=== PATIENT | male | born 1970 | race American Indian/Alaskan Native ===

== ENCOUNTER 2017-01-20 09:32 | Emergency (ER) | payer SELFPAY ==
[2017-01-20 12:07] LABS: Basophils % (Auto) 0.4 % (0.0-1.8); Hematocrit 45.4 % (35.5-45.6); Hemoglobin 14.7 gm/dl (11.8-15.2); Mean Corpuscular HGB Conc 32 % (32-34); Mean Corpuscular Hemoglobin 32 pg (28-32); Mean Corpuscular Volume 100 fl (84-94); Platelet Count 156 K/mm3 (140-440); Red Blood Count 4.54 M/mm3 (3.65-5.03); Red Cell Distribution Width 13.7 % (13.2-15.2); White Blood Count 18.3 K/mm3 (4.5-11.0)
[2017-01-20 12:18] LABS: Anion Gap 18 mmol/L; BUN/Creatinine Ratio 10.76; Blood Urea Nitrogen 14 mg/dL (9-20); Calcium 8.9 mg/dL (8.4-10.2); Carbon Dioxide 25 mmol/L (22-30); Glucose 109 mg/dL (75-100); Potassium 4.5 mmol/L (3.6-5.0); Sodium 135 mmol/L (137-145)
--- NOTE | 2017-01-20 14:15 | Emergency Department Report ---
HPI - General Chief Complaint: Upper Respiratory Infection Time Seen by Provider: 01/20/17 13:26 - HPI HPI: Patient here reported that it started yesterday evening when he developed a tight feeling and has been urinating a lot. He said he is having some burning after urination. Denies any increased thirst. He stated that he's been taking amoxicillin that was prescribed from his brother last year for toothache and it hasn't been working. He is having a slight headache and some chills. He said his headache is paraspinous it doesn't feel like pain he just feels like pressure to his forehead. Pain is 2 out of 10. No [id number] pain medication taken. Denies any chest pain or shortness of breath. He said he coughs occasionally. ED Past Medical Hx - Past Medical History Previous Medical History?: Yes Hx Psychiatric Treatment: Yes (ANXIETY) - Surgical History Past Surgical History?: No - Family History Family history: hypertension - Social History Smoking Status: Never Smoker Substance Use Type: None - Medications Home Medications: Home Medications Medication Instructions Recorded Confirmed Last Taken Type Escitalopram [Lexapro] 10 mg PO DAILY #14 tablet 09/02/15 Unknown Rx Cetirizine HCl [ZyrTEC] 10 mg PO QDAY #14 capsule 01/20/17 Unknown Rx Fluticasone [Flonase] 1 spray NS QDAY #1 bottle 01/20/17 Unknown Rx Levofloxacin [Levaquin] 750 mg PO QDAY #10 tablet 01/20/17 Unknown Rx ED Review of Systems ROS: Stated complaint: FATIGUE Other details as noted in HPI Comment: All other systems reviewed and negative Constitutional: chills. denies: fever Eyes: denies: eye discharge ENT: congestion. denies: throat pain Respiratory: cough. denies: shortness of breath, SOB with exertion, SOB at rest , stridor, wheezing Cardiovascular: denies: chest pain, palpitations, edema, syncope Gastrointestinal: denies: abdominal pain, nausea, vomiting, diarrhea Genitourinary: dysuria, frequency. denies: hematuria, discharge, testicular pain, testicular mass Musculoskeletal: denies: back pain Skin: denies: rash Neurological: headache. denies: numbness, paresthesias, confusion, abnormal gait, vertigo Physical Exam - Physical Exam Vital Signs: Vital Signs 01/20/17 10:44 Temperature 98.2 F Pulse Rate 67 Respiratory 18 Rate Blood Pressure 122/88 O2 Sat by Pulse 99 Oximetry General: This is a 46-year-old male well-nourished well-developed in no acute distress. Physical Exam: Head: Normocephalic atraumatic Mouth: Moist, no pharyngeal exudate or erythema. Uvula is midline and oral airway is patent. No facial swelling. No peritonsillar abscesses. Nose: Congested without erythema to mucosa. Clear Drainage. Maxillary and frontal sinuses nontender to palpate Neck: Supple, no C-spine tenderness, no tracheal deviation. Nontender to palpate. no adenopathy Ears: Bilateral TMs congested without erythema. Bilateral EAC without any redness swelling or drainage. Abdomen: Soft, nontender to palpate in all quadrants, normal bowel sounds in all quadrant and negative CVA tenderness bilaterally. Back: No vertebral or paraspinal tenderness. No saddle anesthesia. Patient able to ambulate without any difficulties. Negative SLR bilaterally. Neurological: GCS of 15, alert and oriented 3. Speech is clear and fluid. Normal gait. No motor or sensory deficit. Normal reflexes. No facial drooping. No pronator drift and negative Romberg. Eyes: Bilateral pupils equal and reactive to light, bilateral EOM intact. Bilateral sclera and conjunctiva without injection. Normal accommodation. No nystagmus Lungs: Clear to auscultate bilaterally no rhonchi wheezes or rales. Normal work of breathing extremity; No CCE. +2 pulses. No neurovascular compromise Cardiovascular: S1-S2, regular rate rhythm. No murmurs. Skin: clean Dry and intact no rash no lesions Psych: Normal mood and behavior ED Course Vital Signs 01/20/17 10:44 Temperature 98.2 F Pulse Rate 67 Respiratory 18 Rate Blood Pressure 122/88 O2 Sat by Pulse 99 Oximetry Vital Signs 01/20/17 01/20/17 10:44 16:45 Temperature 98.2 F Pulse Rate 67 70 Respiratory 18 18 Rate Blood Pressure 122/88 Blood Pressure 122/84 [Left] O2 Sat by Pulse 99 99 Oximetry - Reevaluation(s) Reevaluation #1: 01/20/17 16:42 Patient receives IV fluid in emergency room and given ceftriaxone 1 g IV for UTI. Vital signs remained stable. Blood glucose 122 after he ate. 04/12/17 16:43 Chest x-ray normal. ED Medical Decision Making - Lab Data Result diagrams: 01/20/17 11:49 01/20/17 11:49 Lab Results 01/20/17 01/20/17 01/20/17 Range/Units 10:48 11:49 11:49 WBC 18.3 H (4.5-11.0) K/mm3 RBC 4.54 (3.65-5.03) M/mm3 Hgb 14.7 (11.8-15.2) gm/dl Hct 45.4 (35.5-45.6) % MCV 100 H (84-94) fl MCH 32 (28-32) pg MCHC 32 (32-34) % RDW 13.7 (13.2-15.2) % Plt Count 156 (140-440) K/mm3 Lymph % (Auto) 9.3 L (13.4-35.0) % [place] % (Auto) 8.3 H (0.0-7.3) % Eos % (Auto) 0.0 (0.0-4.3) % Baso % (Auto) 0.4 (0.0-1.8) % Lymph # 1.7 (1.2-5.4) K/mm3 [place] # 1.5 H (0.0-0.8) K/mm3 Eos # 0.0 (0.0-0.4) K/mm3 Baso # 0.1 (0.0-0.1) K/mm3 Seg Neutrophils % 82.0 H (40.0-70.0) % Seg Neutrophils # 15.0 H (1.8-7.7) K/mm3 PT (12.2-14.9) Sec. INR (0.87-1.13) APTT (24.2-36.6) Sec. Sodium 135 L (137-145) mmol/L Potassium 4.5 (3.6-5.0) mmol/L Chloride 97.0 L (98-107) mmol/L Carbon Dioxide 25 (22-30) mmol/L Anion Gap 18 mmol/L BUN 14 (9-20) mg/dL Creatinine 1.3 (0.8-1.5) mg/dL Estimated GFR > 60 ml/min BUN/Creatinine Ratio 10.76 % Glucose 109 H (75-100) mg/dL POC Glucose 122 H (70-105) Lactic Acid (0.7-2.0) mmol/L Calcium 8.9 (8.4-10.2) mg/dL Urine Color (Yellow) Urine Turbidity (Clear) Urine pH (5.0-7.0) Ur Specific [place] (1.003-1.030) Urine Protein (Negative) mg/dL Urine Glucose (UA) (Negative) mg/dL Urine Ketones (Negative) mg/dL Urine Blood (Negative) Urine Nitrite (Negative) Urine Bilirubin (Negative) Urine Urobilinogen (<2.0) mg/dL Ur Leukocyte Esterase (Negative) Urine WBC (Auto) (0.0-6.0) /HPF Urine RBC (Auto) (0.0-6.0) /HPF Urine Bacteria (Auto) (Negative) /HPF Urine Mucus /HPF 01/20/17 01/20/17 01/20/17 Range/Units 14:25 14:58 14:58 WBC (4.5-11.0) K/mm3 RBC (3.65-5.03) M/mm3 Hgb (11.8-15.2) gm/dl Hct (35.5-45.6) % MCV (84-94) fl MCH (28-32) pg MCHC (32-34) % RDW (13.2-15.2) % Plt Count (140-440) K/mm3 Lymph % (Auto) (13.4-35.0) % [place] % (Auto) (0.0-7.3) % Eos % (Auto) (0.0-4.3) % Baso % (Auto) (0.0-1.8) % Lymph # (1.2-5.4) K/mm3 [place] # (0.0-0.8) K/mm3 Eos # (0.0-0.4) K/mm3 Baso # (0.0-0.1) K/mm3 Seg Neutrophils % (40.0-70.0) % Seg Neutrophils # (1.8-7.7) K/mm3 PT 14.5 (12.2-14.9) Sec. INR 1.14 H (0.87-1.13) APTT 28.8 (24.2-36.6) Sec. Sodium (137-145) mmol/L Potassium (3.6-5.0) mmol/L Chloride (98-107) mmol/L Carbon Dioxide (22-30) mmol/L Anion Gap mmol/L BUN (9-20) mg/dL Creatinine (0.8-1.5) mg/dL Estimated GFR ml/min BUN/Creatinine Ratio % Glucose (75-100) mg/dL POC Glucose (70-105) Lactic Acid 1.6 (0.7-2.0) mmol/L Calcium (8.4-10.2) mg/dL Urine Color Yellow (Yellow) Urine Turbidity Clear (Clear) Urine pH 6.0 (5.0-7.0) Ur Specific [place] 1.009 (1.003-1.030) Urine Protein <15 mg/dl (Negative) mg/dL Urine Glucose (UA) Neg (Negative) mg/dL Urine Ketones Neg (Negative) mg/dL Urine Blood Sm (Negative) Urine Nitrite Neg (Negative) Urine Bilirubin Neg (Negative) Urine Urobilinogen < 2.0 (<2.0) mg/dL Ur Leukocyte Esterase Mod (Negative) Urine WBC (Auto) 48.0 H (0.0-6.0) /HPF Urine RBC (Auto) 5.0 (0.0-6.0) /HPF Urine Bacteria (Auto) 1+ (Negative) /HPF Urine Mucus Few /HPF Urine culture pending - Radiology Data Radiology results: report reviewed Chest x-ray revealed no acute findings. - Medical Decision Making ED course: Patient with diagnosis of upper respiratory tract infection and urinary tract infection. Work revealed that he has leukocytosis and mildly decreased potassium. Also patient with urinary tract infection. Lactic acid was normal. His vital signs remained stable. Patient received 1 L of normal saline which will correct is potassium of 3.5 and ceftriaxone 1 g IV for urinary tract infection. I discussed lab work and x-ray results with patient. I did discuss diagnosis and treatment plan and he voiced understanding. Patient discharged home with medication to treat urinary tract infection and upper respiratory tract infection. Discharged home in stable condition with prescription for Levaquin. Zyrtec and Flonase. Patient does not have a primary care physician so I told him to follow up with [facility] in 2-3 days. Good Rx's card given and patient given this the pharmacy where he can get medication for significantly reduced twice. Critical care attestation.: If time is entered above; I have spent that time in minutes in the direct care of this critically ill patient, excluding procedure time. ED Disposition Clinical Impression: Acute cystitis with hematuria, Upper respiratory infection, acute, Cough Leukocytosis Qualifiers: Leukocytosis type: unspecified Qualified Code(s): D72.829 - Elevated white blood cell count, unspecified Disposition: DISCHARGED TO HOME OR SELFCARE Is pt being admited?: No Does the pt Need Aspirin: No Condition: Stable Instructions: Urinary Tract Infection in Men (ED), Upper Respiratory Infection (ED), Leukocytosis (ED), Dysuria (ED), Acute Cough (ED) Additional Instructions: Please increase her fluid intake 2-3 L of liquid today. Please follow up with [facility] in 2-3 days If he is not feeling better and 2 days with nausea vomiting, flank pain, fever please return to emergency room [facility]. Prescriptions: Cetirizine HCl [ZyrTEC] 10 mg PO QDAY #14 capsule Fluticasone [Flonase] 1 spray NS QDAY #1 bottle Levofloxacin [Levaquin] 750 mg PO QDAY #10 tablet Referrals: PRIMARY CAREMD [Primary Care Provider] - 01/22/17 [facility] [Outside] - 01/22/17 Forms: Work/School Release Form(ED)
[2017-01-20] MEDS ORDERED: NACL 0.9% 1000 ML 1,000 ML IV ONE (14:29)
--- NOTE | 2017-01-20 14:51 | XRay Report ---
ROUTINE CHEST, TWO VIEWS: History: Cough and elevated white blood count. Findings: PA and lateral views demonstrate the heart and mediastinal contour to be of normal size and shape. The lungs are clear and fully expanded and the soft tissues and bony structures are normal. IMPRESSION: Normal study.
[2017-01-20 15:12] LABS: Bacteria,Urine 1+ /HPF (Negative); Bilirubin,Urine NEG (Negative); Blood,Urine SM (Negative); Ketones,Urine NEG (Negative); Leukocyte Esterase,Urine MOD (Negative); Mucus,Urine FEW /HPF; Nitrite,Urine NEG (Negative); Protein,Urine <15 mg/dL mg/dL (Negative); Urobilinogen,Urine < 2.0 mg/dL (<2.0)
[2017-01-20 15:44] LABS: INR 1.14 (0.87-1.13)
[2017-01-20 15:45] LABS: Partial Thromboplastin Time 28.8 Sec. (24.2-36.6)
[2017-01-20] MEDS ORDERED: ROCEPHIN IV ONE (16:34)
[2017-01-20] MEDS ORDERED: XYLOCAINE 1% MPF 5 mL INFILTRATI ONE (16:34)
[2017-01-20 17:14] VITALS: BP 118/86
== END 2017-01-20 17:11 | disposition home or self-care (01) ==
LOC: ED 09:32
DX: N30.01 Acute cystitis with hematuria (principal); J06.9 Acute upper respiratory infection, unspecified; D72.829 Elevated white blood cell count, unspecified; F41.9 Anxiety disorder, unspecified
CPT/HCPCS: 36415; 71020; 80048; 81001; 82140; 82962; 85025; 85610; 85730; 87076; 87086; 87186; 96361; 96374; 99284; J0696; J7030